=== PATIENT | male | born 1985 | race Two or more races ===

== ENCOUNTER 2017-02-07 19:42 | Emergency (ER) | payer OTHER ==
[~2017-02-07] VITALS: Ht 172.7 cm; Wt 81.6 kg
[2017-02-07 19:50] VITALS: BP 168/85
== END 2017-02-07 20:51 | disposition home or self-care (01) ==
LOC: ER 19:51
DX: S60.221A Contusion of right hand, initial encounter (principal); W22.8XXA Striking against or struck by other objects, initial encounter; Y92.89 Other specified places as the place of occurrence of the external cause; Y93.89 Activity, other specified; Y99.8 Other external cause status
CPT/HCPCS: 73130; 99284; A4606; Z7610

== ENCOUNTER 2017-02-18 22:47 | Inpatient (IN) | payer OTHER ==
[~2017-02-18] VITALS: Ht 172.7 cm; Wt 81.6 kg
--- NOTE | 2017-02-19 00:11 | NUR ---
PT C/O ABSCESS ON HIS RIGHT UPPER LEG X 4 DAYS, PT AOX 3 RR EVEN AND UNLABORED. NO SOB NOTED. NAD NOTED. NO NVD AT THIS TIME. PT GOWNED AND PLACED ON MONITOR. PHOTOGRAPHIC EQUIPMENT TECHNICIAN MOI AT BEDSIDE.
[2017-02-19] MEDS ORDERED: VANCOMYCIN 1 GM in IV D5W 250 ML IV ONE (00:30)
[2017-02-19] MEDS ORDERED: PIPERACILLIN /TAZOBACTAM 3.375 G in IV D5W 50 ML IV ONE (00:30)
[2017-02-19] MEDS ORDERED: IV NS 0.9% 1,000 ML BAG IV ONE (00:30)
--- NOTE | 2017-02-19 00:30 | NUR ---
URINE COLLECTED. SENT TO LAB.
[2017-02-19 00:56] LABS: BASOPHILS # (AUTO) 0.1 /CMM (0.0-0.2); BASOPHILS % (AUTO) 0.7 % (0.0-2.0); EOSINOPHILS # (AUTO) 1.3 /CMM (0.0-0.7); EOSINOPHILS % (AUTO) 9.5 % (0.0-6.0); HEMATOCRIT 38 % (39-51); HEMOGLOBIN 12.6 g/dL (13.5-17.5); LYMPHOCYTES # (AUTO) 2.1 /CMM (0.8-4.8); LYMPHOCYTES % (AUTO) 15.2 % (20.0-44.0); MEAN CORPUSCULAR HEMOGLOBIN 28 PG (26.0-33.0); MEAN CORPUSCULAR HGB CONC 33 g/dl (31.0-36.0); MEAN CORPUSCULAR VOLUME 83 fL (80-96); MONOCYTES # (AUTO) 0.9 /CMM (0.1-1.30); MONOCYTES % (AUTO) 6.3 % (2.0-12.0); NEUTROPHILS # (AUTO) 9.4 /CMM (1.8-8.9); NEUTROPHILS % (AUTO) 68.3 % (43.0-81.0); PLATELET COUNT (AUTO) 259 /CMM (150-450); RDW COEFFICIENT OF VARIATION 16.1 (11.5-15.0); RED BLOOD CELL COUNT(AUTO) 4.58 MIL/uL (4.5-6.0); WHITE BLOOD COUNT (AUTO) 13.7 K/uL (4.3-11.0)
[2017-02-19] MEDS ORDERED: PIPERACILLIN /TAZOBACTAM 3.375 G VIAL IV ONE (00:56)
--- NOTE | 2017-02-19 00:56 | NUR ---
ROOM ASSIGNMENT 320-2
--- NOTE | 2017-02-19 01:00 | NUR ---
TRICIA PRATER AT BEDSIDE SPEAKING TO PT REGARDING POC. PT ASSIGNED TO 320-2
[2017-02-19] MEDS ORDERED: LIDOCAINE 0.5%-EPI 1:200,000 50 ML VIAL ONE (01:02)
--- NOTE | 2017-02-19 01:04 | NUR ---
LAB AT BEDSIDE TO DRAW ADDITIONAL BLOOD CX.
[2017-02-19 01:05] LABS: APPEARANCE,URINE CLEAR (CLEAR); BILIRUBIN,URINE NEGATIVE (NEGATIVE); BLOOD, URINE NEGATIVE Ery/uL (NEGATIVE); COLOR,URINE YELLOW (YELLOW); KETONES,URINE NEGATIVE (NEGATIVE); LEUKOCYTE ESTERASE ,URINE NEGATIVE (NEGATIVE); NITRITE, URINE NEGATIVE (NEGATIVE); PROTEIN,URINE NEGATIVE (NEGATIVE); UGLUCOSE NEGATIVE (NEGATIVE)
--- NOTE | 2017-02-19 01:05 | NUR ---
TRICIA PRATER SPEAKING TO TRICIA NELSON REGARDING POC/ ADMISSION.
[2017-02-19 01:08] LABS: INR 0.94 (0.87-1.13); PROTHROMBIN TIME 9.8 SECS (9.5-12.7)
[2017-02-19 01:09] LABS: BACTERIA,URINE None seen /HPF (None Seen); RBC,URINE NONE SEEN /HPF (0-2); SQUAMOUS EPITHELIAL CELL,UR Rare /HPF (None Seen); WBC,URINE 0-2 /HPF (0-3)
[2017-02-19 01:14] LABS: TROPONIN I < 0.017 ng/mL (0.00-0.056)
--- NOTE | 2017-02-19 01:15 | NUR ---
TRICIA PRATER AT BEDSIDE FOR I&D, WOUND CULTURE COLLECTED.
[2017-02-19 01:22] LABS: ALANINE AMINOTRANSFERASE 69 U/L (12-78); ALBUMIN 3.4 g/dL (3.4-5.0); ALKALINE PHOSPHATASE 77 U/L (46-116); ASPARTATE AMINOTRANSFERASE 59 U/L (15-37); BILIRUBIN,TOTAL 0.2 mg/dL (0.2-1.0); CALCIUM, SERUM 8.3 mg/dL (8.5-10.1); CARBON DIOXIDE 26 mmol/L (21-32); CHLORIDE 99 mmol/L (98-107); CREATININE 0.9 mg/dL (0.6-1.3); GLUCOSE 109 mg/dL (74-106); POTASSIUM 4.4 mmol/L (3.5-5.1); SODIUM SERUM 133 mmol/L (136-145); TOTAL PROTEIN, SERUM 7.5 g/dL (6.4-8.2); UREA NITROGEN, BLOOD 12 mg/dL (7-18)
--- NOTE | 2017-02-19 01:24 | NUR ---
XRAY AT BEDSIDE
--- NOTE | 2017-02-19 01:26 | NUR ---
REPORT GIVEN TO EDISON MURILLO FOR MS BED 320-2
[2017-02-19] MEDS ORDERED: VANCOMYCIN 1 GM VIAL ONE (01:37)
--- NOTE | 2017-02-19 01:42 | NUR ---
REPORT GIVEN TO EDISON LOPES FOR MS BED 208.
[2017-02-19] MEDS ORDERED: ALBU8.5H2 INH (01:48)
[2017-02-19] MEDS ORDERED: PRAZ2CAP2 PO (01:48)
[2017-02-19] MEDS ORDERED: GABA-534 PO (01:48)
[2017-02-19] MEDS ORDERED: TRAZ-144 PO (01:48)
[2017-02-19] MEDS ORDERED: MAGN400O4 PO (01:48)
[2017-02-19] MEDS ORDERED: HYDR-3026 PO (01:48)
[2017-02-19] MEDS ORDERED: IBUP200C48 PO (01:48)
[2017-02-19] MEDS ORDERED: ONDA4TAB5 PO (01:48)
[2017-02-19] MEDS ORDERED: [UNRECOGNIZED DRUG - CODE] PO (01:48)
[2017-02-19] MEDS ORDERED: ACET-73 PO (01:48)
[2017-02-19] MEDS ORDERED: SULF1TAB48 PO (01:48)
[2017-02-19] MEDS ORDERED: GABAPENTIN 300 MG CAPSULE PO PRN (02:00)
[2017-02-19] MEDS ORDERED: ZOLPIDEM TARTRATE 5 MG TABLET PO PRN (02:00)
[2017-02-19] MEDS ORDERED: MAG HYDROX/AL HYDROX/SIMETH 30 ML UDC PO PRN (02:00)
[2017-02-19] MEDS ORDERED: Z GUARD REMEDY 2 OZ OINT TP PRN (02:00)
[2017-02-19] MEDS ORDERED: TRAZODONE 50 MG TABLET PO PRN (02:00)
[2017-02-19] MEDS ORDERED: ACETAMINOPHEN 325 MG TABLET PO PRN (02:00)
[2017-02-19] MEDS ORDERED: MAGNESIUM HYDROXIDE 30 ML UDC PO PRN (02:00)
[2017-02-19] MEDS ORDERED: ONDANSETRON HCL/PF 4 MG/2 ML VIAL IVP PRN (02:00)
--- NOTE | 2017-02-19 02:03 | NUR ---
PT TRANSFERRED VIA GURNEY TO MS 208
[2017-02-19 02:30] VITALS: BP 130/66
--- NOTE | 2017-02-19 02:30 | NUR ---
MS2/RN RECEIVE PATIENT FROM E.[facility]. [facility]. PATIENT IS AWAKE, ALERT, ORIENTED, MILDLY RESTLESS, NO DISTRESS NOTED. ADMISSION DONE PER PROTOCOL. DRESSING IN RT.POSTERIOR THIGH NOTED WITH SPOT OF BLOOD, PER PATIENT IT WAS DRAINED IN THE E.R. I DID NOT OPEN THE DRESSING, I REENFORCED THE DRESSING. PER PATIENT HE IS ON DETOX FOR OPIATES USE AND IS TAKING SUBOXONE FOR DETOX. PATIENT WANTS TO TAKE THE MED. CALLED [facility], MED IS NOT AVAILABLE HERE. WILL WAIT FOR THE PHARMACY IN A.M. UNABLE TO EXPLAIN THIS TO THE PATIENT THE PATIENT WAS ALREADY SLEEPING. WILL MONITOR.
[2017-02-19] MEDS ORDERED: METH-406 PO (03:44)
--- NOTE | 2017-02-19 04:00 | NUR ---
MS2/RN SLEEPING, AROUSABLE, APPEAR COMFORTABLE, NO DISTRESS NOTE. WILL MONITOR.
[2017-02-19] MEDS: IV NS 0.9% 1,000 ML IV PRN ×2 (04:34→21:37)
[2017-02-19] MEDS ORDERED: BUPR1FIL SL (06:39)
--- NOTE | 2017-02-19 06:55 | NUR ---
MS2/RN PATIENT AT THIS TIME. COMFORTABLE, NO DISTRESS NOTED. ALL NEEDS ATTENDED AT THIS TIME. WILL CONTINUE TO MONITOR.
[2017-02-19] MEDS ORDERED: PIPERACILLIN /TAZOBACTAM 4.5 G in IV D5W 50 ML IV SCH (07:00)
--- NOTE | 2017-02-19 07:10 | NUR ---
MS RN NOTES RECEIVED PATIENT IN BED, SLEEPING, AROUSES EASILY. A/O X4. ON ROOM AIR, TOLERATING WELL. ON IVF INFUSING AT 100ML/HR. RIGHT POSTERIOR THIGH DRESSING IN PLACE, NO BLEEDING. S/P I&D RIGHT POST THIGH CELLULITIS PER NIGHT RN REPORT. CALL LIGHT WITHIN REACH. WILL CONT TO MONITOR.
--- NOTE | 2017-02-19 07:50 | NUR ---
PATIENT APPEARS VERY ANXIOUS AND INSISTING TO SMOKE CIGARETTE OUTSIDE, EDUCATE PATIENT THE IMPORTANCE, RISK AND BENEFITS OF SMOKING CESSATION, AND CONSENT FOR SMOKING. PATIENT INSISTED TO GO OUT THE HOSP. INFORMED TRAINMAN AND CALLED SECURITY. WILL CONT TO MONITOR PATIENT.
[2017-02-19 08:00] VITALS: BP 102/59
[2017-02-19] MEDS ORDERED: IBUPROFEN 200 MG TABLET PO PRN (08:30)
[2017-02-19] MEDS ORDERED: FEE PK DOSING 1 MIN EA MC ONE (08:54)
[2017-02-19] MEDS ORDERED: hydrOXYzine PAMOATE 25 MG CAPSULE PO PRN (09:00)
[2017-02-19] MEDS ORDERED: FLU VACC QS 2017-18(36MOS+)/PF 0.5 ML DISP.SYRIN IM ONE (09:00)
[2017-02-19] MEDS ORDERED: PNEUMOCOCCAL 23-VAL P-SAC VAC 0.5 ML VIAL SQ ONE (09:00)
--- NOTE | 2017-02-19 09:30 | NUR ---
PER REPORT PATIENT IS TAKING SUBOXONE MEDICATION. CALLED SPOKE TO [facility], PER [facility] WILL NOT ABLE TO PROVIDE MEDICATION TO THE PATIENT DUE TO PATIENT WAS DISCHARGED ALREADY FROM THE REHAB [facility]. WILL INFORM
[2017-02-19] MEDS: PRAZOSIN HCL 1 MG CAPSULE PO SCH (09:45)
--- NOTE | 2017-02-19 10:00 | NUR ---
OFFERED PNA AND FLU VACCINE TO THE PATIENT, STATED HE'S UNDECIDED AT THIS TIME AND PREFERS TO HAVE IT LATER THIS AFTERNOON.
--- NOTE | 2017-02-19 10:11 | NUR ---
WOUND CARE CONSULT: PT PRESENTS WITH RED, WARM INDURATED RT POSTERIOR THIGH WITH ABSCESS S/P I & D. RECOMMEND SURGICAL CONSULT AND CONTINUE TO COVER AREA WITH DRY DRESSING. NO PACKING WAS NOTED. DISCUSSED WITH NURSING STAFF. PT IS AMBULATORY AND CONTINENT. WILL SEE PRN. CROUCH IN AGREEMENT WITH PLAN OF CARE. Addendum: 02/19/17 at 1012 by JENNIFER WILEY WNDNU Amended: Links added.
[2017-02-19] MEDS: HYDROCODONE/APAP 5/325MG 1 EACH TABLET PO PRN ×2 (10:17→19:08)
[2017-02-19] MEDS: VANCOMYCIN 1 GM in IV D5W 250 ML IV SCH ×2 (10:31→18:12)
[2017-02-19] MEDS: PIPERACILLIN /TAZOBACTAM 3.375 G in IV D5W 50 ML IV SCH ×2 (12:30→17:30)
--- NOTE | 2017-02-19 14:05 | NUR ---
SW attempted to meet with pt. this afternoon, however, pt. was asleep. SW to follow up and assess pt. later today.
--- NOTE | 2017-02-19 14:59 | NUR ---
PER PATIENT NORCO MEDICATION WAS INEFFECTIVE RELIEVING HIS PAIN, PATIENT STATED "PAIN ALL OVER MY BODY" PATIENT IS DUE FOR NORCO 5/325MG Q 4HOURS PRN, OFFERED TO PATIENT AND GIVEN EDUCATION. PER PATIENT, NORCO NOT DO ANYTHING FOR HIS PAIN AND REQUESTING DILAUDID IV, WILL INFORM .
--- NOTE | 2017-02-19 15:12 | NUR ---
OFFERED PNA AND FLU VACCINE TO THE PATIENT AGAIN, REFUSING VACCINE X3. EDUCATE, RISK AND BENEFITS GIVEN TO THE PATIENT, PATIENT STILL REFUSED.
[2017-02-19 16:00] VITALS: BP 105/57
--- NOTE | 2017-02-19 16:00 | NUR ---
PATIENT TO BE DISCHARGED TODAY BACK TO REHAB CENTER, [facility]ED [facility], WILL ACCEPT PATIENT TODAY. INFORMED [facility] PATIENT WILL BE DISCHARGED WITH PRESCRIPTION ANTIBIOTIC.
[2017-02-19] MEDS ORDERED: AMOX-430 PO (16:28)
--- NOTE | 2017-02-19 16:28 | NUR ---
RECEIVED PHONE CALL FROM [facility], STATING HOLD OFF ACCEPTING PATIENT TODAY DUE MRSA AND WOUND RESULT PENDING. INFORMED CM. Addendum: 02/19/17 at 1845 by RONNI GREENE RN CLARIFICATION OF ABOVE NOTES PER [facility], WILL NOT ACCEPT THE PATIENT DUE TO RESULT OF MRSA NARES, WOUND CULTURE RESULTS ARE STILL PENDING.
--- NOTE | 2017-02-19 16:31 | NUR ---
PATIENT TO BE DISCHARGED TO REHAB FOR DETOX ORDERED.
--- NOTE | 2017-02-19 17:45 | NUR ---
CM CALLED [facility]/ACCEPTING REHAB. PENDING DISCHARGE TODAY 02/19/17. ROCKET ENGINE TESTER TO SEE PATIENT TOMORROW.
--- NOTE | 2017-02-19 18:58 | NUR ---
MS RN CLOSING NOTES PATIENT IN HIS ROOM, A/O X4. IV IN LEFT AC G22 INTACT, ON IVF NS INFUSING AT 100ML/HR, TOLERATING WELL. ON ANTIBIOTIC IV WITH NO ADVERSE SIDE EFFECT, AFEBRILE. PATIENT IS AMBULATORY, STEADY GAIT AND BALANCE. NO C/O PAIN OR ANY DISCOMFORT AT THIS TIME. BREATHING EVEN AND NON LABORED, NO REPORTED SOB. DENIES CHEST PAIN. NO EPISODE OF WITHDRAWAL SYMPTOMS. PATIENT TO BE DISCHARGED BACK TO [facility]. WAS HELD TODAY DUE TO WOUND CX AND MRSA RESULT PENDING, PER KOU[facility]NEY/[facility] WILL NOT ACCEPT PATIENT UNTIL TEST RESULTED. IS AWARE. VALDEZ WAS INFORMED, FEATHER DUSTER WINDER TO SEE PATIENT TOMORROW PER CM. WILL ENDORSE TO ART LIBRARIAN RN FOR CONTINUITY OF CARE.
--- NOTE | 2017-02-19 19:09 | NUR ---
PATIENT IN BED, C/O RIGHT THIGH PAIN 7/10, GIVEN NORCO 5/325MG 1 TAB PO PRN. WILL REASSESS.
--- NOTE | 2017-02-19 19:30 | NUR ---
MS2/RN RECEIVE PATIENT AWAKE, ALERT, ORIENTED, COMFORTABLE, WITH TOLERABLE PAIN LEVEL AT THIS TIME, NO DISTRESS NOTED, CALL LIGHT IN REACH. WILL MONITOR.
[2017-02-19 20:50] VITALS: BP 112/55
--- NOTE | 2017-02-19 22:48 | NUR ---
MS2/RN PATIENT IS SLEEPING AT THIS TIME, AROUSABLE, APPEAR COMFORTABLE, NO DISTRESS NOTED, CALL LIGHT IN REACH. WILL CONTINUE TO MONITOR.
[2017-02-20] MEDS: PIPERACILLIN /TAZOBACTAM 3.375 G in IV D5W 50 ML IV SCH ×3 (00:54→11:44)
[2017-02-20] MEDS: VANCOMYCIN 1 GM in IV D5W 250 ML IV SCH ×2 (02:19→11:31)
--- NOTE | 2017-02-20 06:15 | NUR ---
MS2/RN STILL SLEEPING, AROUSABLE, APPEAR COMFORTABLE, NO SIGNS OF DISTRESS NOTED, CALL LIGHT IN REACH. ALL NEEDS ATTENDED AT THIS TIME. WILL CONTINUE TO MONITOR.
[2017-02-20 06:39] LABS: BASOPHILS % (AUTO) 0.5 % (0.0-2.0); EOSINOPHILS # (AUTO) 1.7 /CMM (0.0-0.7); EOSINOPHILS % (AUTO) 16.3 % (0.0-6.0); HEMATOCRIT 38 % (39-51); HEMOGLOBIN 12.6 g/dL (13.5-17.5); LYMPHOCYTES # (AUTO) 2.2 /CMM (0.8-4.8); LYMPHOCYTES % (AUTO) 20.7 % (20.0-44.0); MEAN CORPUSCULAR HEMOGLOBIN 28 PG (26.0-33.0); MEAN CORPUSCULAR HGB CONC 33 g/dl (31.0-36.0); MEAN CORPUSCULAR VOLUME 84 fL (80-96); MONOCYTES # (AUTO) 1.3 /CMM (0.1-1.30); MONOCYTES % (AUTO) 12.5 % (2.0-12.0); NEUTROPHILS # (AUTO) 5.3 /CMM (1.8-8.9); PLATELET COUNT (AUTO) 260 /CMM (150-450); RDW COEFFICIENT OF VARIATION 15.2 (11.5-15.0); RED BLOOD CELL COUNT(AUTO) 4.48 MIL/uL (4.5-6.0); WHITE BLOOD COUNT (AUTO) 10.5 K/uL (4.3-11.0)
[2017-02-20 07:16] LABS: CALCIUM, SERUM 8.2 mg/dL (8.5-10.1); CREATININE 0.8 mg/dL (0.6-1.3); MAGNESIUM 2.2 mg/dL (1.8-2.4); PHOSPHORUS 3.3 mg/dL (2.5-4.9); POTASSIUM 4.1 mmol/L (3.5-5.1)
[2017-02-20 08:00] VITALS: BP 106/69
--- NOTE | 2017-02-20 08:20 | NUR ---
MS RN RECEIVED ON BED, AWAKE,ALERT,ORIENTED X4,NOT IN ANY FORM OF DISTRESS, RESPIRATIONS EVEN AND UNLABORED,NO SOB NOTED, LUNGS ARE CLEAR,ABDOMEN SOFT, POSITIVE BOWEL SOUNDS, DENIES PAIN AT THIS TIME, S/P WOUND I AND D AT RIGH POSTERIOR THIGH, COVERED W/ DRESSING, DRY AND INTACT,NO S/S OF BLEEDING , NO DRAINAGE NOTED, REDDISH AT SURROUNDING AREA. WILL MONITOR PATIENT'S CONDITION.
[2017-02-20] MEDS: HYDROCODONE/APAP 5/325MG 1 EACH TABLET PO PRN ×2 (08:54→14:32)
[2017-02-20 08:55] VITALS: BP 106/59
[2017-02-20] MEDS: PRAZOSIN HCL 1 MG CAPSULE PO SCH (08:55)
--- NOTE | 2017-02-20 09:00 | NUR ---
MS HOGAN BREAKFAST SERVED, DUE MEDS GIVEN,TOLERATED WELL.
--- NOTE | 2017-02-20 11:29 | NUR ---
BLAINE met with pt. bedside. Pt. is alert and oriented x4. Pt. is well groomed and pleasant. Pt. stated he is in a detox program at [facility]. BLAINE informed him that per mattress spring encaser Rubina the program was refusing to take him back due to his wound. BLAINE informed him that she will call the program and confirm. Pt. states he recently moved from [place] to attend a drug treatment program. All his family is except for a brother and aunt who reside in [place]. Pt. is single and has no children. Pt. states he has been to a few drug treatment programs and relapsed this past weekend. Pt's drug of choice is heroin and Benzo's. Pt. denies drinking alcohol. Pt. is homeless prior to being in a detox program. Pt. is interested in continuing his detox program. SW to follow up with pt. once she speaks with [facility]. Pt. denies suicidal and homicidal ideations and visual/auditory hallucinations at this time.
--- NOTE | 2017-02-20 11:36 | NUR ---
BLAINE contacted Ceci at [facility] regarding if they were accepting pt. back into the program. Ceci informed BLAINE that they were not sure if they will since pt. has a small wound. Ceci informed BLAINE to contact the director Mike at regarding if they will accept pt. back. BLAINE contacted Mike and was trying to explain to him regarding pt's wound, however Mike interrupted BLAINE and aggressively began telling SW that they were not going to take pt. back. Mike was rude and unprofessional during the conversation . BLAINE met with pt. bedside and informed him that she spoke with Mike at the program and he is refusing to take him back. Pt. stated that he is speaking with a counselor at [facility] who will follow up with him in few minutes. SW to follow up with pt. in the afternoon to inquire if [facility] will accept pt.
--- NOTE | 2017-02-20 14:50 | NUR ---
MS RN PATIENT WENT TO FACILITY W/ DISCHARGE ORDERS EXPLAINED AND PT UNDERSTOOD. TO HAVE A FOLLOW UP W/ PRIMARY IN ONE WEEK, ATB PRESCRIPTION GIVEN.ALL NEEDS ATTENDED.
--- NOTE | 2017-02-20 14:58 | NUR ---
BLAINE spoke to Aisha who informed BLAINE that pt. is accepted at [facility] in [place] and someone from the rehab is on their way to cloth picker pt.
[2017-02-20] MEDS ORDERED: LACTOBACILLUS RHAMNOSUS GG 1 EACH CAP.SPRINK PO SCH (17:00)
== END 2017-02-20 14:45 | DRG 383 ==
LOC: ER 22:47 → MED 02-19 01:13 → MEDSG2 02-19 01:35
PROVIDERS: ADMIT Nurse Practitioner Acute Care; ATTEND Nurse Practitioner Acute Care
PROC: 0H9HXZZ Drainage of Right Upper Leg Skin, External Approach (ICD-10-PCS; principal; 2017-02-19)
DX: L03.115 Cellulitis of right lower limb (principal); F11.20 Opioid dependence, uncomplicated; L02.415 Cutaneous abscess of right lower limb; F17.210 Nicotine dependence, cigarettes, uncomplicated; K21.9 Gastro-esophageal reflux disease without esophagitis; F19.90 Other psychoactive substance use, unspecified, uncomplicated
CPT/HCPCS: 36415; 71010-TC; 73552; 80048-TC; 80061-TC; 80076-TC; 80202-TC; 80305; 81000-TC; 83605-TC; 83735-TC; 84100-TC; 84484-TC; 85025-TC; 85652-TC; 85730-TC; 86140-TC; 87040-TC; 87070-TC; 87081-TC; 87086-TC; 90732; 93307-TC; A4606; A6402; A6403; J2543; J3370; J3490; J7030; J7060; Q2036; Z7610

== ENCOUNTER 2020-03-25 00:38 | Emergency (ER) | payer OTHER ==
[~2020-03-25] VITALS: Ht 170.2 cm; Wt 68.0 kg
[2020-03-25 00:38] VITALS: BP 145/80
[~2020-03-25 00:38] MED LIST: ACET-73 PO; ALBU8.5H8 INH; AMOX-430 PO; BUPR1FIL SL; GABA-534 PO; HYDR-500 PO; IBUP-2413 PO; MAGN400O21 PO; METH-406 PO; ONDA4TAB5 PO; PRAZ2CAP2 PO; TRAZ-182 PO; [UNRECOGNIZED DRUG - CODE] PO
[2020-03-25] MEDS ORDERED: ALBUTEROL FS 2.5 MG/0.5 ML VIAL.NEB NEB ONE (01:00)
[2020-03-25] MEDS ORDERED: ALBUTEROL FS 2.5 MG/3 ML VIAL.NEB ONE (01:02)
--- NOTE | 2020-03-25 01:02 | NUR ---
rt at bedside for breathing treatment
--- NOTE | 2020-03-25 01:26 | NUR ---
Patient discharged to home in stable condition. Written and verbal after care instructions given. Patient verbalizes understanding of instruction.
== END 2020-03-25 01:26 | disposition home or self-care (01) ==
LOC: ER 00:38
DX: J98.01 Acute bronchospasm (principal); F41.9 Anxiety disorder, unspecified; Z79.899 Other long term (current) drug therapy

== ENCOUNTER 2020-06-04 20:39 | Emergency (ER) | payer OTHER ==
[~2020-06-04] VITALS: Ht 170.2 cm; Wt 63.5 kg
--- NOTE | 2020-06-04 20:58 | NUR ---
BELONGINGS COLLECTED AND PLACED IN LOCKER. PT ALSO PROVIDED WITH BLANKETS.
[2020-06-04 21:55] LABS: BASOPHILS # (AUTO) 0.1 /CMM (0.0-0.2); BASOPHILS % (AUTO) 1.1 % (0.0-2.0); EOSINOPHILS % (AUTO) 6.1 % (0.0-6.0); HEMATOCRIT 37 % (39-51); HEMOGLOBIN 12.1 g/dL (13.5-17.5); LYMPHOCYTES # (AUTO) 1.9 /CMM (0.8-4.8); LYMPHOCYTES % (AUTO) 22.6 % (20.0-44.0); MEAN CORPUSCULAR HGB CONC 33 g/dl (31.0-36.0); MEAN CORPUSCULAR VOLUME 83 fL (80-96); MONOCYTES # (AUTO) 1.1 /CMM (0.1-1.30); MONOCYTES % (AUTO) 12.8 % (2.0-12.0); NEUTROPHILS # (AUTO) 4.7 /CMM (1.8-8.9); NEUTROPHILS % (AUTO) 57.4 % (43.0-81.0); PLATELET COUNT (AUTO) 325 /CMM (150-450); RED BLOOD CELL COUNT(AUTO) 4.46 MIL/uL (4.5-6.0); WHITE BLOOD COUNT (AUTO) 8.3 K/uL (4.3-11.0)
[2020-06-04 22:02] LABS: CALCIUM, SERUM 8.9 mg/dL (8.5-10.1); CARBON DIOXIDE 27 mmol/L (21-32); CHLORIDE 100 mmol/L (98-107); CREATININE 0.8 mg/dL (0.6-1.3); GLUCOSE 83 mg/dL (74-106); POTASSIUM 3.7 mmol/L (3.5-5.1); SODIUM SERUM 137 mmol/L (136-145); UREA NITROGEN, BLOOD 18 mg/dL (7-18)
[2020-06-04 22:07] LABS: ALANINE AMINOTRANSFERASE 37 U/L (12-78); ALBUMIN 3.4 g/dL (3.4-5.0); ALCOHOL, BLOOD < 3 mg/dL (0-0); ALKALINE PHOSPHATASE 72 U/L (46-116); ASPARTATE AMINOTRANSFERASE 37 U/L (15-37); BILIRUBIN,DIRECT 0.1 mg/dL (0.0-0.2); BILIRUBIN,TOTAL 0.2 mg/dL (0.2-1.0); TOTAL PROTEIN, SERUM 6.9 g/dL (6.4-8.2)
[2020-06-04 22:26] LABS: BILIRUBIN,URINE NEGATIVE (NEGATIVE); COLOR,URINE YELLOW (YELLOW); LEUKOCYTE ESTERASE ,URINE NEGATIVE (NEGATIVE); NITRITE, URINE NEGATIVE (NEGATIVE); PROTEIN,URINE NEGATIVE (NEGATIVE); UGLUCOSE NEGATIVE (NEGATIVE); UROBILINOGEN,URINE 0.2 EU/dL (0.2)
--- NOTE | 2020-06-05 01:00 | NUR ---
MINERALOGY TEACHER EDISON MAGUIRE AT BEDSIDE FOR EVALAUTION
--- NOTE | 2020-06-05 02:01 | NUR ---
TRANSFER INFORMATION: ACCEPTED TO [facility] ACCEPTING MD: DR. DELAROSA/DR. LARSON NUMBER FOR REPORT: [phone]
--- NOTE | 2020-06-05 02:29 | NUR ---
PAGED CALL THE CAR FOR BLS TRANSPORT TO [facility]. AWAITING CALL BACK FOR ETA. #[phone]
--- NOTE | 2020-06-05 02:44 | NUR ---
[facility] ETA 30 MINS
[2020-06-05 03:16] VITALS: BP 133/87
--- NOTE | 2020-06-05 03:17 | NUR ---
REPORT GIVEN TO EDISON QUIROZ FOR [facility]
--- NOTE | 2020-06-05 03:19 | NUR ---
REPORT GIVEN TO [facility] 722 FOR TRANSPORTATION [facility]. PT TRANSFERRED TO [facility] IN STABLE CONDITION
--- NOTE | 2020-06-05 03:30 | NUR ---
PT WAS TRANSFERRED TO [facility] IN STABLE CONDITION. BELONGINGS PICKED UP
== END 2020-06-05 03:55 ==
LOC: ER 20:43
DX: R45.851 Suicidal ideations (principal); F23 Brief psychotic disorder; F15.10 Other stimulant abuse, uncomplicated; J45.909 Unspecified asthma, uncomplicated; G40.909 Epilepsy, unspecified, not intractable, without status epilepticus; F41.9 Anxiety disorder, unspecified; Z59.0 Homelessness; Z79.899 Other long term (current) drug therapy; Z20.822 Contact with and (suspected) exposure to COVID-19
CPT/HCPCS: 36415; 80048; 80076; 80299; 80307; 80320; 81003; 85025; 87426; 99285; C9803; G0480